=== PATIENT | male | born 1955 | race Caucasian/White ===

== ENCOUNTER 2019-03-22 09:46 | Outpatient (CLI) | payer OTHER ==
[~2019-03-22 09:46] MED LIST: CARVEDILOL12.5 MG; COZAAR25 MG; DIAZEPAM10 MG; GABAPENTIN600 MG; HUMULIN R500 U/ML; SERTRALINE HCL1 GM; ZOCOR20 MG
== END 2019-03-22 15:00 | disposition home or self-care (01) ==
LOC: EKG 09:46
DX: I13.10 Hypertensive heart and chronic kidney disease without heart failure, with stage 1 through stage 4 chronic kidney disease, or unspecified chronic kidney disease (principal); N18.6 End stage renal disease

== ENCOUNTER 2019-08-29 07:29 | Emergency (ER) | payer OTHER ==
[~2019-08-29] VITALS: Ht 152.4 cm; Wt 68.0 kg
[2019-08-29] MEDS ORDERED: SERTRALINE20 MG/1 ML PO (08:02)
[2019-08-29] MEDS ORDERED: COZAAR100 MG PO (08:03)
[2019-08-29] MEDS ORDERED: LANTUS SOL100 UNIT/1 SUBCUTANEO (08:03)
[2019-08-29] MEDS ORDERED: LEVAQUIN500 MG PO (12:27)
== END 2019-08-29 13:24 | disposition home or self-care (01) ==
LOC: ER 07:29
DX: B34.9 Viral infection, unspecified (principal)

== ENCOUNTER 2021-09-12 08:00 | Outpatient (CLI) | payer OTHER ==
[~2021-09-12 08:00] MED LIST changes: +COZAAR100 MG PO; +LANTUS SOL100 UNIT/1 SUBCUTANEO; +LEVAQUIN500 MG PO; +SERTRALINE20 MG/1 ML PO
== END 2021-09-12 08:30 | disposition home or self-care (01) ==
LOC: PPH VACUNA 08:00
PROVIDERS: ATTEND Emergency Medicine Pediatric Emergency Medicine
DX: Z23 Encounter for immunization (principal)